=== PATIENT | female | born 1965 | race Caucasian/White ===

== ENCOUNTER → 2016-06-26 | Outpatient (CLI) | payer OTHER ==
--- NOTE | 2016-06-27 11:16 | MM ---
Reason for exam: screening (asymptomatic). Last mammogram was performed 1 year and 11 months ago. History: Patient is postmenopausal. Family history of breast cancer in maternal grandmother at age 70 and breast cancer in maternal aunt at age 65. Took estrogen for 6 months. Physical Findings: A clinical breast exam by your physician is recommended on an annual basis and results should be correlated with mammographic findings. MG Screening Mammo w CAD Bilateral CC and MLO view(s) were taken. Prior study comparison: July 21, 2014, right breast MG work up mamm w CAD RT. July 15, 2014, bilateral MG screening mammo w CAD. The breast tissue is heterogeneously dense. This may lower the sensitivity of mammography. There is no discrete abnormality. No significant changes when compared with prior studies. ASSESSMENT: Negative, BI-RAD 1 RECOMMENDATION: Routine screening mammogram of both breasts in 1 year.
== END | disposition home or self-care (01) ==
LOC: RADMAMWWP 10:33
PROVIDERS: ATTEND Obstetrics & Gynecology
DX: Z12.31 Encounter for screening mammogram for malignant neoplasm of breast (principal)

== ENCOUNTER → 2016-09-12 | Outpatient (CLI) | payer OTHER ==
--- NOTE | 2016-09-13 07:18 | US ---
EXAMINATION TYPE: US thyroid st tissue head/neck DATE OF EXAM: 09/12/2016 COMPARISON: NONE CLINICAL HISTORY: R59.1 Lymphadenopathy of head and neck. Patient and Dr. feel like patient had left sided swelling. A 1.5 x 0.7 cm lymph node is seen, which is oval and normal in morphology maintaining a fatty hilum.. No other cystic or solid sonographic masses are seen. No suspicious sonographic abnormality is prese nt. IMPRESSION: Single morphologically normal-appearing lymph node within the left neck measuring 7 mm i n short axis.
== END | disposition home or self-care (01) ==
LOC: RADUSWWP 15:35
PROVIDERS: ATTEND Family Medicine
DX: R59.1 Generalized enlarged lymph nodes (principal)
CPT/HCPCS: 76536

== ENCOUNTER → 2017-04-20 | Outpatient (CLI) | payer OTHER ==
--- NOTE | 2017-04-20 09:29 | XR ---
EXAMINATION TYPE: XR wrist complete RT DATE OF EXAM: 04/20/2017 COMPARISON: NONE HISTORY: Pain TECHNIQUE: Four views submitted. FINDINGS: The osseous structures are intact. Narrowing the first carpal metacarpal joint and there is no acute fracture or dislocation. IMPRESSION: 1. No definite acute fracture or dislocation if symptoms persist, follow-up study in 7 to 10 days wo uld be suggested
== END | disposition home or self-care (01) ==
LOC: RADXRYALE 09:06
PROVIDERS: ATTEND Family Medicine
DX: M25.531 Pain in right wrist (principal); M25.541 Pain in joints of right hand

== ENCOUNTER → 2017-09-10 | Outpatient (CLI) | payer OTHER ==
--- NOTE | 2017-09-10 10:13 | XR ---
EXAMINATION TYPE: XR knee complete RT DATE OF EXAM: 09/10/2017 CLINICAL HISTORY: Medial knee pain and posterior knee pain after injury yesterday TECHNIQUE: Three views of the right knee are obtained. COMPARISON: None. FINDINGS: Although there is no acute fracture/dislocation evident in right knee there is slight media l subluxation of the femur on the frontal view, however this could also relate to slight obliquity an d angulation of the femur. The tri-compartment joint spaces demonstrate mild medial compartment join t space narrowing and small marginal osteophyte from the medial femoral condyle as well as from the s uperior and inferior patellar poles. The overlying soft tissue appears unremarkable. IMPRESSION: 1. No evidence of acute fracture or dislocation of the right knee. 2. Slight medial subluxation of the distal femur that could relate to patient positioning. If there i s further concern MRI could be performed. 3. Mild medial compartment arthropathy.
== END | disposition home or self-care (01) ==
LOC: RADXRYALE 09:15
PROVIDERS: ATTEND Physician Assistant Medical
DX: S83.191A Other subluxation of right knee, initial encounter (principal); M12.861 Other specific arthropathies, not elsewhere classified, right knee

== ENCOUNTER 2019-03-06 08:32 | Day surgery (SDC) | payer OTHER ==
[2019-03-04 15:36] VITALS: BMI 31.4
[~2019-03-06 08:32] MED LIST: LACTATED RINGERS 1,000 ML IV SCH; LIDOCAINE 1% 20 ML VIAL (10MG/ML) FOR IV START INTRADERMA PRN
[2019-03-06 08:51] VITALS: TEMP 97.5
[2019-03-06] MEDS ORDERED: LIDOCAINE 1% INJ 10MG/ML (20 ML MDV) ONE (09:32)
[2019-03-06] MEDS ORDERED: PROPOFOL 10 MG/ML 20 ML VIAL IV ONE (09:32)
[2019-03-06 10:20] VITALS: RESP 16
--- NOTE | 2019-03-06 10:22 | P.PCN ---
Date of Procedure: 03/06/19 Description of Procedure: BRIEF HISTORY: Patient is a 54-year-old female presenting for outpatient colonoscopy for complaints of change in bowel habits. Patient was seen as an outpatient complaining of abdominal pain with episodes of urgency with bowel movements and findings of x-ray of the abdomen performed with her primary which showed large stool burden. At that time patient was recommended to have a colonoscopy for further evaluation. She was also started on a bowel regimen of Benefiber daily and dicyclomine as needed but has not initiated this treatment. She reports last colonoscopy in 2016 was significant for polypectomy. PROCEDURE PERFORMED: Colonoscopy with polypectomy. PREOPERATIVE DIAGNOSIS: Change in bowel habits, last colonoscopy 2015. ESTIMATED BLOOD LOSS: Minimal. IV sedation per Anesthesia. PROCEDURE: After informed consent was obtained, the patient, was brought into the endoscopy unit. IV sedation was administered by Anesthesia under continuous monitoring. Digital rectal examination was normal. Initially the Olympus CF-190 flexible video colonoscope was then inserted in the rectum, gradually advanced into the cecum without any difficulty. Careful examination was performed as the scope was gradually being withdrawn. Ileocecal valve and the appendiceal orifice were visualized and appeared normal. Prep was excellent. Mucosa of the cecum, ascending colon, transverse colon, descending colon, sigmoid colon, and rectum appeared normal. A few scattered diverticula were noted in the sigmoid colon. Diminutive 2 mm polyps removed from the rectum and transverse colon with cold forcep polypectomy. Retroflexion was performed in the rectum and no lesions were seen. The patient tolerated the procedure well. IMPRESSION: Mild sigmoid diverticulosis. 2 diminutive polyps removed with cold forcep from the rectum and transverse colon. RECOMMENDATIONS: Findings of this examination were discussed with the patient And her . Okay to resume diet. Okay to resume medications. Await pathology from polypectomies. Follow-up in clinic as previously scheduled. Would recommend repeat colonoscopy in 5 years for history of colon polyps.
[2019-03-06 10:31] VITALS: BP 131/77; PULSE 64
== END 2019-03-06 11:02 | disposition home or self-care (01) ==
LOC: ORWHC2ENDO 08:32
PROVIDERS: ATTEND Internal Medicine
DX: K63.5 Polyp of colon (principal); K62.1 Rectal polyp; K57.30 Diverticulosis of large intestine without perforation or abscess without bleeding; Z86.010 Personal history of colon polyps; Z88.0 Allergy status to penicillin; Z90.710 Acquired absence of both cervix and uterus; Z90.49 Acquired absence of other specified parts of digestive tract; Z72.0 Tobacco use; Z79.3 Long term (current) use of hormonal contraceptives; Z79.899 Other long term (current) drug therapy; Z98.890 Other specified postprocedural states
CPT/HCPCS: 88305; 45380; J2001; J2704

== ENCOUNTER → 2020-02-03 | Outpatient (CLI) | payer OTHER ==
--- NOTE | 2020-02-03 11:31 | XR ---
EXAMINATION TYPE: XR abdomen 2V DATE OF EXAM: 02/03/2020 COMPARISON: NONE HISTORY: Pain TECHNIQUE: Single supine KUB image of the abdomen is obtained FINDINGS: Small bowel demonstrates no evidence for dilatation or air fluid levels. Gas and fecal material is seen in non-distended colon. No convincing evidence for pneumoperitoneum. No unusual calcifications. The lung bases are clear. The osseous structures are intact. IMPRESSION: 1. Overall nonobstructive bowel gas pattern.
== END | disposition home or self-care (01) ==
LOC: RADXRYALE 11:10
PROVIDERS: ATTEND Physician Assistant Medical
DX: K59.00 Constipation, unspecified (principal); R10.30 Lower abdominal pain, unspecified
CPT/HCPCS: 74019

== ENCOUNTER → 2021-01-05 | Outpatient (CLI) | payer OTHER ==
[2021-01-05 10:47] LABS: ALT 18 U/L (4-34); AST 23 U/L (14-36); African American GFR (CKD) >90 (>60 ml/min/1.73 sqM); Albumin 4.1 g/dL (3.5-5.0); Alkaline Phosphatase 72 U/L (38-126); Anion Gap 8 mmol/L; Blood Urea Nitrogen 12 mg/dL (7-17); Calcium 9.8 mg/dL (8.4-10.2); Carbon Dioxide 26 mmol/L (22-30); Chloride 104 mmol/L (98-107); Glucose 102 mg/dL (74-99); Non-African American GFR(CKD) 85 (>60 ml/min/1.73 sqM); Potassium 4.6 mmol/L (3.5-5.1); Sodium 138 mmol/L (137-145); Total Bilirubin 0.3 mg/dL (0.2-1.3); Total Protein 7.2 g/dL (6.3-8.2)
[2021-01-05 10:50] LABS: INR 0.9 (<1.2); Partial Thromboplastin Time 24.3 sec (22.0-30.0); Prothrombin Time 10.1 sec (9.0-12.0)
[2021-01-05 11:00] LABS: Appearance,Urine Clear (Clear); Bilirubin,Urine Negative (Negative); Blood,Urine Negative (Negative); Color,Urine Light Yellow; Glucose,Urine (UA) Negative (Negative); Ketones,Urine Negative (Negative); Leukocyte Esterase,Urine Negative (Negative); Nitrite,Urine Negative (Negative); Protein,Urine Negative (Negative); Specific Gravity,Urine 1.004 (1.001-1.035); Urobilinogen,Urine <2.0 mg/dL (<2.0)
[2021-01-05 11:10] LABS: HGB 15.9 gm/dL (11.4-16.0); MCH 31.3 pg (25.0-35.0); MCHC 33.1 g/dL (31.0-37.0); MCV 94.5 fL (80.0-100.0); Mean Platelet Volume 7.5; Platelet Count 293 k/uL (150-450); RBC 5.08 m/uL (3.80-5.40); RDW 13.3 % (11.5-15.5); WBC 8.4 k/uL (3.8-10.6)
== END | disposition home or self-care (01) ==
LOC: LABPAT 09:20
PROVIDERS: ATTEND Orthopaedic Surgery Sports Medicine
DX: Z01.812 Encounter for preprocedural laboratory examination (principal)
CPT/HCPCS: 80053; 81003; 85027; 85610; 85730; 87070

== ENCOUNTER 2021-01-27 08:15 | Day surgery (SDC) | payer OTHER ==
[2021-01-24 15:40] VITALS: BMI 31.9
[~2021-01-27 08:15] MED LIST changes: +ACETAMINOPHEN TAB 500 MG TAB PO PRN; +DEXAMETHASONE SOD PHOSPHATE 4 MG/ML 1 ML VIAL IV ONE; +GABAPENTIN 300 MG CAP PO PRN; -LACTATED RINGERS 1,000 ML IV SCH; +LIDOCAINE 1% (10MG/ML) FOR IV START INTRADERMA PRN; -LIDOCAINE 1% 20 ML VIAL (10MG/ML) FOR IV START INTRADERMA PRN; +MELOXICAM 7.5 MG TAB PO PRN; +MIDAZOLAM 2 MG/2 ML VIAL IV PRN; +ONDANSETRON 4 MG/2 ML VIAL IVP ONE; +ONDANSETRON 4 MG/2 ML VIAL IVP PRN; +TRANEXAMIC ACID 1,000 MG in SODIUM CHLORIDE 0.9% 100 ML IVPB PRN
[2021-01-27] MEDS ORDERED: SCOPOLAMINE 1.5MG/72HR PATCH TRANSDERM ONE (09:15)
[2021-01-27] MEDS: LACTATED RINGERS 1,000 ML IV SCH ×2 (09:15→16:52)
[2021-01-27 09:30] LABS: Glucose,Whole Blood 113 mg/dL (75-99)
[2021-01-27] MEDS ORDERED: bisacodyL 10 MG SUPP RECTAL PRN (09:50)
[2021-01-27] MEDS ORDERED: ONDANSETRON 4 MG/2 ML VIAL IVP PRN (09:50)
[2021-01-27] MEDS ORDERED: MAGNESIUM HYDROXIDE 2,400 MG/10 ML CUP PO PRN (09:50)
[2021-01-27] MEDS ORDERED: HYDROmorphone 1 MG/ML 1 ML SYRINGE IVP PRN (09:50)
[2021-01-27] MEDS ORDERED: diazePAM 5 MG TAB PO PRN (09:50)
[2021-01-27] MEDS ORDERED: ACETAMINOPHEN TAB 325 MG TAB PO PRN (09:50)
[2021-01-27] MEDS ORDERED: traMADol 50 MG TAB PO PRN (09:50)
[2021-01-27] MEDS ORDERED: HYDROmorphone 0.5 MG/0.5 ML SYRINGE IVP PRN (09:50)
[2021-01-27] MEDS ORDERED: HYDROcodone/APAP 5-325MG 1 EACH TAB PO PRN (09:50)
[2021-01-27] MEDS ORDERED: NA PHOS,M-B/NA PHOS,DI-BA 133 ML ENEMA RECTAL PRN (09:50)
[2021-01-27] MEDS ORDERED: hydrOXYzine pamoate 25 MG CAP PO PRN (09:50)
[2021-01-27] MEDS ORDERED: TEMAZEPAM 15 MG CAP PO PRN (09:50)
[2021-01-27] MEDS ORDERED: HYDROmorphone 0.2 MG/1 ML SYRINGE IVP PRN (09:50)
[2021-01-27] MEDS ORDERED: NALOXONE 0.4 MG/ML 1 ML VIAL IV PRN (09:50)
[2021-01-27] MEDS ORDERED: ROPIVACAINE 5 MG/ML 30 ML VIAL ONE (09:51)
[2021-01-27] MEDS ORDERED: TRANEXAMIC ACID 1,000 MG/10 ML VIAL ONE (09:51)
[2021-01-27] MEDS ORDERED: SODIUM CHLORIDE 0.9% 100 ML BAG ONE (09:51)
[2021-01-27] MEDS ORDERED: PHENYLEPHRINE-0.9% NACL SYG 1,000 MCG/10 ML SYRINGE ONE (09:51)
[2021-01-27] MEDS ORDERED: MIDAZOLAM 2 MG/2 ML VIAL ONE (09:51)
[2021-01-27] MEDS ORDERED: .fentaNYL (PF) 50 MCG/ML 2 ML AMP ONE (09:51)
[2021-01-27] MEDS ORDERED: PROPOFOL 10 MG/ML 20 ML VIAL IV ONE (09:51)
[2021-01-27] MEDS ORDERED: ePHEDrine 50 MG/ML 1 ML AMP ONE (09:51)
[2021-01-27] MEDS ORDERED: KETAMINE 10 MG/ML 20 ML VIAL ONE (09:51)
--- NOTE | 2021-01-27 09:57 | P.ANPRN ---
Procedure Note - Anesthesia - Nerve Block Performed Right Adductor Canal Infusion Time Out Performed: Yes (922) Date of Procedure: 01/27/21 Procedure Start Time: 09:23 Procedure Stop Time: 09:28 Location of Patient: PreOp Indication: Acute Post-Operative Pain, Requested by Surgeon Specifically requested for management of pain by DrEllyn: Ronal Clark Sedation Type: Sedate with meaningful contact maintained Preparation: Sterile Prep, Sterile Dressing Position: Supine Catheter Depth at Skin (cm): 8 Catheter: Indwelling Needle Types: Pajunk Needle Gauge: 21 Ultrasound used to visualize needle placement: Yes Ultrasound used to observe medication spread: Yes Injectate: 0.5% Ropivacaine (see comment for volume) (20cc) Blood Aspirated: No Pain Paresthesia on Injection Noted: No Resistance on Injection: Normal Image Stored and Saved: Yes Events: Uneventful and Well Tolerated Right iPack Single Time Out Performed: Yes (922) Date of Procedure: 01/27/21 Procedure Start Time: 09:29 Procedure Stop Time: 09:34 Location of Patient: PreOp Indication: Acute Post-Operative Pain, Requested by Surgeon Specifically requested for management of pain by DrEllyn: Ronal Clark Sedation Type: Sedate with meaningful contact maintained Preparation: Sterile Prep Position: Supine Catheter: None Needle Types: Pajunk Needle Gauge: 21 Ultrasound used to visualize needle placement: Yes Ultrasound used to observe medication spread: Yes Injectate: 0.5% Ropivacaine (see comment for volume) (20cc) Blood Aspirated: No Pain Paresthesia on Injection Noted: No Resistance on Injection: Normal Image Stored and Saved: Yes Events: Uneventful and Well Tolerated
[2021-01-27] MEDS ORDERED: ceFAZolin 3,000 MG in SODIUM CHLORIDE 0.9% IRRIGATIO 3,000 ML IRRIGATION ONE (10:27)
[2021-01-27] MEDS ORDERED: LACTATED RINGERS 1,000 ML IV ONE (11:32)
[2021-01-27] MEDS ORDERED: ROPIVACAINE 0.2%-NS ON-Q PUMP 1,090 MG, EMPTY PAIN BALL 1 EACH MISCELLANE PRN (11:54)
--- NOTE | 2021-01-27 12:42 | XR ---
EXAMINATION TYPE: XR knee limited RT DATE OF EXAM: 01/27/2021 CLINICAL HISTORY: Right knee pain and arthritis status post total knee replacement. TECHNIQUE: Portable AP and crosstable lateral views of the right knee are obtained immediately posto peratively. COMPARISON: Right knee x-ray September 10, 2017 FINDINGS: Metallic hardware from total right knee arthroplasty is seen and appears satisfactory in a lignment and position. There is evidence of recent surgery with diffuse subcutaneous gas and soft ti ssue swelling noted. IMPRESSION: METALLIC HARDWARE FROM TOTAL RIGHT KNEE ARTHROPLASTY IS SATISFACTORY IN ALIGNMENT.
[2021-01-27] MEDS: HYDROmorphone 0.5 MG/0.5 ML SYRINGE IVP PRN ×2 (13:52→16:00)
[2021-01-27] MEDS ORDERED: diphenhydrAMINE 50 MG/ML 1 ML VIAL IVP ONE (13:52)
--- NOTE | 2021-01-27 14:33 | OP ---
OPERATIVE REPORT DATE OF PROCEDURE: 01/27/2021. SURGEON: Ronal Clark M.D. ESCALATOR MECHANIC: Walt Leo PA-C PREOPERATIVE DIAGNOSIS: Right knee osteoarthrosis. POSTOPERATIVE DIAGNOSIS: Right knee osteoarthrosis. OPERATION: Right total knee arthroplasty. ANESTHESIA: Spinal with sedation. ESTIMATED BLOOD LOSS: 100 mL. TOURNIQUET TIME: 50 minutes at 250 mmHg. COMPLICATIONS: None apparent. DRAINS: None. DISPOSITION: Post-Anesthesia Care Unit INDICATIONS: Celeste is a 55-year-old female with longstanding history of right knee pain. History and physical examination are consistent with advanced right knee osteoarthrosis. She has been through significant nonoperative management up to this point. Further treatment options were discussed and she has decided to go forward with right total knee arthroplasty. The risks of the procedure were discussed with her in detail. These risks included but were not limited to risk of infection, nerve damage, bleeding, pain, and a small risk of deep vein thrombosis which could lead to fatal pulmonary embolism. There is also a risk of loosening of the implant, which could require revision operation. The patient understands the risks. All of her questions were answered to her satisfaction. Appropriate informed consent was obtained. DESCRIPTION OF THE PROCEDURE: The patient was identified in the preoperative holding area. Surgical site was marked by both the patient and myself. She was given 2 grams of Ancef IV for prophylactic purposes. She was then transported to the operative suite. She was placed supine on the operating room table. A spinal anesthetic was then administered and dosed per the anesthesia department without apparent complication. Examination under anesthesia was then performed. The patient was 2-3 degrees shy of full extension. She had 100 degrees of flexion. The medial collateral ligament, lateral collateral ligament and posterior cruciate ligaments were stable. Tourniquet was then placed high on the right upper thigh, well padded in preparation for surgery. The patient's right lower extremity was then prepped and draped in the usual sterile fashion. A standard surgical pause was undertaken to ensure that we were operating on the correct site and that appropriate preoperative antibiotics had been given. All staff in the room were in agreement and we proceeded. The outlines of the patella were marked with a surgical pen. A planned 12 cm vertical incision centered over the patella was marked with a surgical pen. The leg was then exsanguinated with an Esmarch dressing. The knee was then flexed and the tourniquet was inflated to 250 mmHg. The total tourniquet time for the procedure was 50 minutes Incision was then made with a 10 blade scalpel. Dissection was carried down sharply to the overlying fascia. Great care was taken to minimize the skin flaps. The knee was then exposed using a standard medial parapatellar approach. A small cuff of quadriceps tendon was then left for suturing. She was in a bit of varus preoperatively. A standard medial release was then made. Superficial medial collateral ligament was dissected off of the bone and around to the posterior aspect of the proximal tibia. The medial meniscus was then excised as well. The lateral meniscus was also released anteriorly. The leg was then externally rotated. The patella was everted. The knee was flexed. Retractors were then placed to protect the collateral ligaments. I then proceeded to remove the infrapatellar fat pad. This was excised sharply tangentially with the fibers of the patellar tendon. I then proceeded to remove the peripheral osteophytes. This was done with a rongeur. I then proceeded with the distal femoral resection. She did have near-full extension. A planned 9 mm resection was then done. The femoral canal was then entered in the midline of the femur approximately 10 mm anterior to the origin of the posterior cruciate ligament. The harry was then advanced down the center of the femur and placed intramedullary. Based on the preoperative radiographs, the angle between the anatomic and mechanical axis of the femur was approximately 4-5 degrees. The valgus angle of the distal femoral cutting guide was then set at 4 degrees for the right knee. The distal femoral cutting guide was then advanced over the intramedullary harry. This was seated firmly against the femur. Then, as mentioned, I planned to take 9 mm off the distal femur. The cutting block was then secured onto the femur with pins. The jig was then removed. The distal femoral cut was made through the slot of the block. The pins were then removed and the distal femoral cutting block was removed. The accuracy of the distal femoral cuts was checked with 2 flat bars. I then proceeded with femoral sizing. The posterior referencing sizing guide was held firmly against the resected distal surface of the femur. The posterior condyles were resting on the posterior plane of the guide. The sizing stylus was then placed onto the anterior femur. The size was measured as a size 6. I then assessed for femoral rotation. The plan was for 3 degrees of external rotation. Three degrees of external rotation was placed onto the jig. These holes were then marked. I then confirmed the rotation by 3 separate methods. This was done using the epicondylar axis as well as Whitesides line and posterior referencing. It was deemed that the external rotation was proper. I then went forward with placing the femoral cutting block. This was placed over the previously placed pin holes. The Dereck wing was then placed onto the anterior slots to ensure that we would not notch the anterior femur with the anterior femoral cut. I then proceeded with the anterior femoral cut. This was flush with the anterior cortex of the femur. The posterior cuts were then made followed by the anterior chamfer cut and then the posterior chamfer cut. The cutting block was then removed. Throughout the resection, the collateral ligaments were protected with retractors. I then placed a trial size 6 femur. It fit very nicely medial to lateral and it fit flush with the distal end of the femur. The drill holes were then made. I then proceeded with the tibial cut. I planned for a cruciate-retaining knee. The guide was placed and set for varus, valgus and for slope. The height was set for an approximate 2 mm resection from the medial tibial plateau, which was the lower side. I was happy with the alignment and the amount of resection. The cutting block was then pinned to the proximal tibia. The alignment harry was removed and the proximal tibia was resected with a reciprocating saw. Again, this was done with retractors protecting the collateral ligaments as well as the posterior cruciate ligament. I then proceeded to evaluate the flexion and extension gaps. A 10 mm block was then placed. The flexion and extension gaps were equal. I then proceeded with resection of the posterior osteophytes. She had very minimal posterior osteophytes. This was done using a curved osteotome. This resected the posterior osteophytes, and posterior capsule stripping was done off the posterior aspect of the femur at this time. The osteophytes were then removed. I then proceeded with resection of the patella. The thickness of the patella was measured using the caliper. The thickness was 22 mm. The thickness of the anticipated patellar dome was taken into account. The resection was then performed and confirmed to be equal in 4 quadrants using a caliper. Approximately 14 mm of bone remained after resection. A 29 x 8 standard patellar trial was then placed. The holes were drilled and the trial was then placed. I then proceeded with sizing the tibial plate. A size E tibial plate fit very nicely. I then placed the trial femur, the tibial tray and the patellar button. A 10 mm trial tibial insert was also placed. The components fit very nicely. She had full extension and flexion. The extension and flexion gaps were equal and stable to both varus and valgus stress. The patella tracked appropriately. Tibial tray rotation was then marked with a Bovie. This was externally rotated properly. I then proceeded with tibial preparation. First we drilled the femoral holes and removed the femoral component. The tibial tray was then set for proper external rotation as well as mediolateral placement onto the tibia. It was then pinned into place. I then proceeded with punching the keel. I then decided to proceed with cementing of all of our components. The knee was thoroughly irrigated with sterile saline solution via pulse lavage. The lateral geniculate artery was identified and cauterized. All blood was removed from the bone of the tibia, femur and patella with pulse lavage. I then proceeded with cementing. Two packs of antibiotic bone cement were prepared on the back table by the surgical nurse practitioner. I then proceeded with cementing of the tibia first. The cement was impacted into the keel as well as deeply seated into the bone. A second coat of cement was then placed. The tibia was then impacted into place. Excess cement was removed with Diaz's and Joker's. I then proceeded with cementing of the femoral component. The femoral component was also cemented using standard technique. Excess cement was removed. A 10 mm trial insert was then placed into the knee. It was brought into full extension with a constant axial load placed until the cement had hardened. The patellar component was then cemented. This was held firmly with a compressive device until the cement had dried. When the cement had dried, the knee was taken out of extension. All excess cement was removed from around the prosthesis. I then trialed the knee with a 10 mm insert. Flexion and extension gaps were appropriate. I then trialed with a 12 mm insert. Flexion and extension gaps felt better. The knee was stable with the 12 mm insert. It came into full extension. I decided to go forward with a 12 mm medial-congruent, cross- linked, cruciate-retaining tibial insert. Polyethylene was then placed onto the tibial tray and locked into place. The knee was then reduced. The knee was again further irrigated with sterile saline solution with antibiotic added. The tourniquet was then deflated. Total tourniquet time for the procedure was 50 minutes at 250 mmHg. Final components were Suze Persona size 6 cruciate-retaining femoral component, a size E tibial tray, a 12 mm medial-congruent, cruciate-retaining polyethylene insert and a 29 x 8 mm patella. I then proceeded with closure. Again the knee was thoroughly irrigated. The quadriceps tendon and the medial retinaculum were reapproximated with #2 Ethibond suture. The extensor mechanism was then closed with a running #2 Quill suture. Subcutaneous tissues were closed with 2-0 Vicryl interrupted suture. The skin was closed with a running 3-0 Quill suture. Dermabond was applied to the incision. Sterile compressive dressings were applied. All sponge and needle counts were deemed correct prior to closure. The patient tolerated the procedure without apparent complication. She was transferred to the recovery room in stable condition. MMODL / IJN: [id number] /
[2021-01-27] MEDS: ASPIRIN 81 MG PO SCH (20:27)
[2021-01-27] MEDS: HYDROcodone/APAP 10-325MG 1 EACH TAB PO PRN (20:28)
[2021-01-27] MEDS ORDERED: SENNOSIDES-DOCUSATE SODIUM 1 EACH TAB PO SCH (21:00)
[2021-01-28 01:18] VITALS: PULSE 55; RESP 16
[2021-01-28] MEDS: LACTATED RINGERS 1,000 ML IV SCH ×3 (02:38→07:42)
[2021-01-28] MEDS: ASPIRIN 81 MG PO SCH (07:39)
[2021-01-28] MEDS: HYDROcodone/APAP 10-325MG 1 EACH TAB PO PRN (07:39)
--- NOTE | 2021-01-28 08:18 | P.PN ---
Progress Note - Text 01/28/21 636am 75-year-old female status post total knee replacement by Dr. Clark patient has an On-Q pump for postop pain control with the solution running at 8 mL an hour with a VAS of 9. Dressing clean dry and intact. patient needs oral meds for breakthrough pain. Plan to continue On-Q pump infusion
[2021-01-28] MEDS ORDERED: IPRATROPIUM-ALBUTEROL 3 ML NEB INHALATION PRN (08:41)
--- NOTE | 2021-01-28 09:06 | P.CONS ---
History of Present Illness - History of Present Illness This is a pleasant 55 years old female with past medical history of COPD, Ost eoarthritis, diverticulitis, Current every day smoker chronic back pain status post steroid injection Was admitted for right total knee replacement and arthroplasty. She is postop day #1 Patient is doing well and she was ready to walk with the physical therapist. She denies chest pain or dyspnea. No coughing. No abdominal pain or vomiting or diarrhea. No urinary complaints. Patient states she smokes about 1-1.5 pack per day, no alcohol or illicit drugs. Patient was counseled to quit and she agrees. She declined nicotine patch Vitals stable, heart rate 56-58. No current labs. Coronavirus nondetected Labs reviewed from the system dated 01/05/2021: CBC showing unremarkable numbers, INR 0.9 BMP is unremarkable and liver enzymes not elevated. Urinalysis is clean Review of Systems CONSTITUTIONAL: No fever, no malaise, no fatigue. HEENT: No recent visual problems or hearing problems. Denied any sore throat. CARDIOVASCULAR: No orthopnea, PND, no palpitations, no syncope. PULMONARY: No shortness of breath, no cough, no hemoptysis. GASTROINTESTINAL: No diarrhea, no nausea, no vomiting, no abdominal pain. Normoactive bowel sounds. NEUROLOGICAL: No headaches, no weakness, no numbness. HEMATOLOGICAL: Denies any bleeding or petechiae. GENITOURINARY: Denies any burning micturition, frequency, or urgency. MUSCULOSKELETAL/RHEUMATOLOGICAL: Denies any joint pain, swelling, or any muscle pain. ENDOCRINE: Denies any polyuria or polydipsia. Past Medical History Past Medical History: COPD, Osteoarthritis (OA) Additional Past Medical History / Comment(s): seasonal allergies, hx of colon polyps, hypoglycemia, diverticulitis History of Any Multi-Drug Resistant Organisms: None Reported Past Surgical History: Bladder Surgery, Cholecystectomy, Hernia Repair, Hysterectomy, Orthopedic Surgery Additional Past Surgical History / Comment(s): lyndon knee arthroscopies, colonoscopies, bladder suspension,. STEROID INJECTIONS IN BACK, RIGHT KNEE REPLACEMENT Past Anesthesia/Blood Transfusion Reactions: Motion Sickness, Postoperative Nausea & Vomiting (PONV) Additional Past Anesthesia/Blood Transfusion Reaction / Comm: PATIENT STATES SHE HAS NEVER HAD A BLOOD TRANSFUSION Past Psychological History: No Psychological Hx Reported Smoking Status: Current every day smoker Past Alcohol Use History: Rare Additional Past Alcohol Use History / Comment(s): SMOKES @least 1-1.5 PPD FOR PAST 30 YRS Past Drug Use History: None Reported - Past Family History Mother Family Medical History: Congestive Heart Failure (CHF), Coronary Artery Disease (CAD) Additional Family Medical History / Comment(s): BACK SURGERY Father Family Medical History: AICD/Pacemaker, CVA/TIA, Diabetes Mellitus Medications and Allergies Home Medications Medication Instructions Recorded Confirmed Type Multivitamins, Thera [Multivitamin] 1 tab PO DAILY 09/10/14 01/24/21 History Cyanocobalamin (Vitamin B-12) 1,000 mcg PO DAILY 03/04/19 01/24/21 History [Vitamin B-12] Vitamin C/Biotin [Hair, Skin and 1 tab PO DAILY 03/04/19 01/24/21 History Nails] Acetaminophen [Tylenol] 325 - 650 mg PO Q4-6H PRN 01/24/21 01/24/21 History Albuterol Inhaler [Ventolin Hfa 2 puff INHALATION QID PRN 01/24/21 01/24/21 History Inhaler] Ascorbic Acid [Vitamin C] 500 mg PO DAILY 01/24/21 01/24/21 History Cholecalciferol [Vitamin D3 (25 25 mcg PO DAILY 01/24/21 01/24/21 History Mcg = 1000 Iu)] Zinc 50 mg PO DAILY 01/24/21 01/24/21 History Aspirin [Adult Low Dose Aspirin EC] 81 mg PO BID #60 tab 01/27/21 Rx Docusate [Colace] 100 mg PO BID #60 capsule 01/27/21 Rx HYDROcodone/APAP 7.5-325MG [[place] 1 - 2 each PO Q6HR PRN #42 tab 01/27/21 Rx 7.5-325] Allergies Allergy/AdvReac Type Severity Reaction Status Date / Time Penicillins Allergy Rash/Hives Verified 01/27/21 17:04 Physical Exam Vitals: Vital Signs Temp Pulse Pulse Resp BP Pulse Ox 01/28/21 08:25 93 L 01/28/21 00:42 97.6 F 55 L 16 104/65 93 L 01/27/21 19:05 97.9 F 58 L 15 103/68 93 L 01/27/21 16:01 56 L 16 116/65 97 01/27/21 15:04 56 L 16 127/61 100 01/27/21 14:02 55 L 16 123/66 97 01/27/21 13:30 56 L 16 126/63 99 01/27/21 13:15 56 L 16 119/64 97 01/27/21 13:01 57 L 16 115/63 99 01/27/21 12:46 64 16 115/61 99 01/27/21 12:31 62 16 124/62 98 01/27/21 12:18 54 L 16 116/67 100 01/27/21 12:00 54 L 16 110/61 100 01/27/21 11:50 97.0 F L 62 16 109/59 99 01/27/21 09:40 55 L 16 119/75 98 01/27/21 09:04 97.7 F 62 16 137/72 98 Intake and Output 01/27/21 01/28/21 01/28/21 22:59 06:59 14:59 Intake Total 200 Balance 200 Intake: IV 200 Other: # Voids 1 Weight 88.5 kg GENERAL: The patient is alert and oriented x3, not in any acute distress. Well developed, well nourished. HEENT: Pupils are round and equally reacting to light. EOMI. No scleral icterus. No conjunctival pallor. Normocephalic, atraumatic. No pharyngeal erythema. No thyromegaly. CARDIOVASCULAR: S1 and S2 present. No murmurs, rubs, or gallops. PULMONARY: Chest is clear to auscultation, no wheezing or crackles. ABDOMEN: Soft, nontender, nondistended, normoactive bowel sounds. No palpable organomegaly. MUSCULOSKELETAL: No joint swelling or deformity. -EXTREMITIES: No cyanosis, clubbing, or pedal edema. Status post right knee surgery with wound is closed and in a dressing, rest of exam is deferred to the surgery primary team NEUROLOGICAL: Gross neurological examination did not reveal any focal deficits. SKIN: No rashes. No petechiae Results Labs: Abnormal Lab Results - Last 24 Hours (Table) 01/27/21 Range/Units 09:18 POC Glucose (mg/dL) 113 H (75-99) mg/dL Assessment and Plan Assessment: Severe osteoarthritis of the right knee status post right total knee arthroplasty Nicotine dependence COPD, not an active issue History of diverticulitis Plan: This is a pleasant 55 years old female who presents for right total knee arthroplasty Continue with postop care Patient was counseled to quit and she agrees. She declined nicotine patch Patient looks medically stable Labs and medication were reviewed.. Continue same treatment. Continue with symptomatic treatment. Resume home medication. Monitor lytes and vitals. DVT and GI prophylaxis. Further recommendationsas per clinical course of the patient DVT prophylaxis and pain management is deferred to the primary surgery team PT/OT: Pending Thank you for consulting us , we will follow up with you
[2021-01-28 09:34] LABS: Basophils # (A) 0.02 X 10*3/uL (0.00-0.10); Basophils % (A) 0.2 %; Eosinophils # (A) 0.04 X 10*3/uL (0.04-0.35); Eosinophils % (A) 0.3 %; HCT 41.8 % (37.2-46.3); HGB 13.1 g/dL (12.0-15.0); Lymphocytes # (A) 3.22 X 10*3/uL (0.90-5.00); Lymphocytes % (A) 27.9 %; MCHC 31.3 g/dL (32.0-37.0); MCV 95.7 fL (80.0-97.0); Mean Platelet Volume 10.5 fL (9.5-12.2); Monocytes # (A) 0.93 X 10*3/uL (0.20-1.00); Neutrophils # (A) 7.32 X 10*3/uL (1.80-7.70); Neutrophils % (A) 63.3 %; Platelet Count 271 X 10*3/uL (140-440); RBC 4.37 X 10*6/uL (4.10-5.20); WBC 11.56 X 10*3/uL (4.50-10.00)
[2021-01-28] MEDS ORDERED: HYDROcodone/APAP 7.5-325MG 1 EACH TAB PO PRN ×2 (09:50)
--- NOTE | 2021-01-28 10:06 | P.DS ---
Providers Expected date of discharge: 01/28/21 Attending physician: Ronal Clark Consults: 01/27/21 09:50 Consult Physician Routine Consulting Provider: Juan Johnson Consult Reason/Comments: post op medical management Do you want consulting provider notified?: Yes Primary care physician: Wan Ramos - Discharge Diagnosis(es) (1) Osteoarthritis of right knee Patient was admitted to the OR on 01/27/21 to undergo a right total knee arthroplasty. She had failed conservative measures as an outpatient and desired to proceed with elective surgery after given informed consent. She underwent the above procedure which she tolerated well without complication. Postoperative hospital course has remained without complication. On day of discharge she is afebrile, vital signs stable, labs within acceptable ranges, tolerating by mouth meds and diet, voiding without difficulty, positive flatus, denies abdominal pain or calf pain, pain is controlled on oral pain medication and has no new complaints. Wound is benign, neurovascular status is intact, calf is soft and nontender, abdomen soft and nontender. Review of systems is negative for numbness, tingling, fever, chills, chest pain, shortness of breath, nausea, vomiting, dizziness, headaches, slurred speech or other. Current Visit: Yes Status: Acute Priority: Medium Procedures: Right TKA Patient Condition at Discharge: Good Plan - Discharge Summary Discharge Rx Participant: Yes New Discharge Prescriptions: New Aspirin [Adult Low Dose Aspirin EC] 81 mg PO BID #60 tab Docusate [Colace] 100 mg PO BID #60 capsule HYDROcodone/APAP 7.5-325MG [[place] 7.5-325] 1 - 2 each PO Q6HR PRN #42 tab PRN Reason: Pain No Action Multivitamins, Thera [Multivitamin] 1 tab PO DAILY Vitamin C/Biotin [Hair, Skin and Nails] 1 tab PO DAILY Cyanocobalamin (Vitamin B-12) [Vitamin B-12] 1,000 mcg PO DAILY Acetaminophen [Tylenol] 325 - 650 mg PO Q4-6H PRN PRN Reason: Pain Albuterol Inhaler [Ventolin Hfa Inhaler] 2 puff INHALATION QID PRN PRN Reason: Shortness Of Breath Cholecalciferol [Vitamin D3 (25 Mcg = 1000 Iu)] 25 mcg PO DAILY Ascorbic Acid [Vitamin C] 500 mg PO DAILY Zinc 50 mg PO DAILY Discharge Medication List Multivitamins, Thera [Multivitamin] 1 tab PO DAILY 09/10/14 [History] Cyanocobalamin (Vitamin B-12) [Vitamin B-12] 1,000 mcg PO DAILY 03/04/19 [History] Vitamin C/Biotin [Hair, Skin and Nails] 1 tab PO DAILY 03/04/19 [History] Acetaminophen [Tylenol] 325 - 650 mg PO Q4-6H PRN 01/24/21 [History] Albuterol Inhaler [Ventolin Hfa Inhaler] 2 puff INHALATION QID PRN 01/24/21 [History] Ascorbic Acid [Vitamin C] 500 mg PO DAILY 01/24/21 [History] Cholecalciferol [Vitamin D3 (25 Mcg = 1000 Iu)] 25 mcg PO DAILY 01/24/21 [History] Zinc 50 mg PO DAILY 01/24/21 [History] Aspirin [Adult Low Dose Aspirin EC] 81 mg PO BID #60 tab 01/27/21 [Rx] Docusate [Colace] 100 mg PO BID #60 capsule 01/27/21 [Rx] HYDROcodone/APAP 7.5-325MG [[place] 7.5-325] 1 - 2 each PO Q6HR PRN #42 tab 01/27/21 [Rx] Follow up Appointment(s)/Referral(s): Ronal Clark MD [STAFF PHYSICIAN] - 10 Days [facility] Visiting Nurse, [NON-STAFF] - As Needed ([facility] will call you to schedule your home physical therapy visits. ) Activity/Diet/Wound Care/Special Instructions: Weight bear as tolerated May shower after 3 days if no bleeding Keep wound clean and dry Take meds as directed F/U with Dr. Clark in office Discharge Disposition: HOME WITH HOME HEALTH SERVICES
[2021-01-28 10:11] VITALS: BP 104/70; TEMP 97.8
[2021-01-28] MEDS ORDERED: MULTIVITAMINS, THERA 1 EACH TAB PO SCH (12:00)
== END 2021-01-28 14:55 | disposition home health service (06) ==
LOC: OR 08:15 → 4SSUR 11:50 → OR 01-28 14:55
PROVIDERS: ATTEND Orthopaedic Surgery Sports Medicine
DX: M17.11 Unilateral primary osteoarthritis, right knee (principal); E78.5 Hyperlipidemia, unspecified; F17.210 Nicotine dependence, cigarettes, uncomplicated; J44.9 Chronic obstructive pulmonary disease, unspecified; Z79.899 Other long term (current) drug therapy; Z88.0 Allergy status to penicillin
CPT/HCPCS: 94760; 97161; 64999; 64448; 76942; 85025; 88300; 87635; 73560; 27447; C1776; C1713; J2250; J1200; J1100; J0690 ×3; J2405; J3010; J2795 ×2; J2370; J2704; J1170

== ENCOUNTER → 2022-08-23 | Outpatient (CLI) | payer OTHER ==
--- NOTE | 2022-08-24 08:50 | MM ---
Reason for Exam: Screening (asymptomatic). Last mammogram was performed 6 year(s) and 2 month(s) ago. Patient History: Menarche at age 12. First Full-Term at age 17. Hysterectomy at age 39. Postmenopausal. Patient has history of breast feeding. Estrogen for 6 months. Maternal grandmother had breast cancer, age 70. Maternal aunt had breast cancer, age 65. Risk Values: Anneliese 5 year model risk: 0.9%. NCI Lifetime model risk: 5.0%. Prior Study Comparison: 12/16/2009 Bilateral Screening Mammogram, [facility]. 09/11/2011 Bilateral Screening Mammogram, [facility]. 07/15/2014 Bilateral Screening Mammogram, [facility]. 07/21/2014 Right Diagnostic Mammogram, [facility]. 06/26/2016 Bilateral Screening Mammogram, [facility]. Tissue Density: The breast tissue is heterogeneously dense. This may lower the sensitivity of mammography. Findings: Analyzed By CAD. There is no suspicious group of microcalcifications or new suspicious mass in either breast. Overall Assessment: Negative, BI-RAD 1 Management: Screening Mammogram of both breasts in 1 year. . Patient should continue monthly self-breast exams. A clinical breast exam by your physician is recommended on an annual basis. This exam should not preclude additional follow-up of suspicious palpable abnormalities. Note on Anneliese scores and lifetime risk: 1. A Anneliese score greater than 3% is considered moderate risk. If this is the case, consider specialist referral to assess eligibility for a risk reducing agent. 2. If overall lifetime risk for the development of breast cancer is 20% or higher, the patient may qualify for future screening with alternating mammogram and breast MRI. Electronically signed and approved by: Jeffry Vasquez M.D. Radiologis
== END | disposition home or self-care (01) ==
LOC: RADMAMWWP 09:40
PROVIDERS: ATTEND Family Medicine
DX: Z12.31 Encounter for screening mammogram for malignant neoplasm of breast (principal); Z78.0 Asymptomatic menopausal state; Z80.3 Family history of malignant neoplasm of breast
CPT/HCPCS: 77063; 77067

== ENCOUNTER → 2023-06-28 | Outpatient (CLI) | payer BC ==
--- NOTE | 2023-06-28 12:45 | CTL ---
EXAMINATION TYPE: CT Low Dose Lung DATE OF EXAM ORDERED: 06/28/2023 HISTORY: . Low Dose CT Lung Screening CT DLP: 117.[address] CTDI: 3.5 mGy IV CONTRAST USED: None. SCREENING VISIT: First visit COMPARISON: None. TECHNIQUE: Low dose computed tomography scan was performed through the chest at 1 millimeter thick se ctions and reconstructed images in the coronal plane at [address] DIAGNOSTIC QUALITY: Satisfactory FINDINGS: LUNG NODULES: Left apical nodule measuring 6 mm. Partially calcified solid nodule right upper lobe im age 89 measures 7 mm. Pleural-based nodularity left lower lobe measures 6 mm and 6 mm respectively a nd right lower lobe posteriorly measures 6 mm and 5.5 mm respectively. No additional discrete nodules are present. LUNGS: COPD: Severity: Mild Fibrosis: Severity:None Lymph nodes: None Other findings: None RIGHT PLEURAL SPACE: Effusion: None Calcification: None Thickening: None Pneumothorax: None LEFT PLEURAL SPACE: Effusion: None Calcification: None Thickening: None Pneumothorax: None HEART: Heart Size: Mildly enlarged Coronary calcification: Mild Pericardial effusion: None OTHER FINDINGS: Upper abdomen: No significant abnormality Bony thorax: Degenerative changes Supraclavicular region: No significant abnormalityOther: No significant abnormalityI IMPRESSION: Pulmonary nodules noted all measuring less than [address] CHEST RECOMMENDATION: Follow-up study in [address] LUNG RAD: LUNG RAD CATEGORY 3 probably benign
== END | disposition home or self-care (01) ==
LOC: RADCTMAIN 11:12
PROVIDERS: ATTEND Family Medicine
DX: Z12.2 Encounter for screening for malignant neoplasm of respiratory organs (principal); R91.8 Other nonspecific abnormal finding of lung field; F17.210 Nicotine dependence, cigarettes, uncomplicated
CPT/HCPCS: 71271

== ENCOUNTER → 2023-12-11 | Outpatient (CLI) | payer BC ==
--- NOTE | 2023-12-11 13:52 | CT ---
EXAMINATION TYPE: CT chest wo con CT DLP: 657 mGycm, Automated exposure control for dose reduction was used. DATE OF EXAM: 12/11/2023 1:41 PM COMPARISON: CT low-dose lung 06/28/2023 CLINICAL INDICATION:Female, 58 years old with history of M54.2 Neck pain; PHH, lung nodules TECHNIQUE: Multiple axial images were obtained through the chest without IV contrast. Lack of IV or o ral contrast limits evaluation of solid and hollow organ viscera. . Coronal and sagittal reformats re viewed. FINDINGS: LUNGS/ PLEURA: No pleural effusion, pneumothorax, focal consolidation. Stable left apical 6.2 mm pulm onary nodule (series 4, image 8). Right anterior midline 7.8 mm nodule with punctate calcification (s eries 4, series 3). Appears less solid from prior examination. Stable 2.5 mm anterior left upper lobe pulmonary nodule (series 4, image 21). AIRWAY: Patent and unremarkable.. HEART: Size within normal limits. Trace anterior pericardial effusion. MEDIASTINUM: No gross evidence of adenopathy. VASCULATURE: No aortic aneurysm. Mild atherosclerotic calcification of the aorta and its branches. MUSCULOSKELETAL: Mild disc degeneration changes are present throughout the thoracolumbar spine. SOFT TISSUES/LYMPH NODES: Unremarkable. LOWER NECK: No significant findings. UPPER ABDOMEN: Gallbladder is surgically absent. Tiny subcentimeter hypodense foci within the liver w hich are too small character is likely represent cysts. IMPRESSION: Stable size of pulmonary nodules with previously seen right midlung pulmonary nodule demonstrating le ss solid appearance. No new or enlarging pulmonary nodules. Follow-up CT chest in one year is recomme loretta. [facility], , 12/11/2023 1:49 PM
== END | disposition home or self-care (01) ==
LOC: RADCTMAIN 12:32
PROVIDERS: ATTEND Family Medicine
CPT/HCPCS: 71250

== ENCOUNTER → 2024-01-04 | Outpatient (CLI) | payer BC ==
--- NOTE | 2024-01-07 07:09 | MM ---
Reason for Exam: Screening (asymptomatic). Last mammogram was performed 1 year(s) and 4 month(s) ago. Patient History: Menarche at age 12. First Full-Term at age 17. Hysterectomy at age 39. Postmenopausal. Patient has history of breast feeding. Estrogen for 6 months. Maternal grandmother had breast cancer, age 70. Maternal aunt had breast cancer, age 65. Risk Values: Anneliese 5 year model risk: 0.9%. NCI Lifetime model risk: 4.9%. Prior Study Comparison: 07/21/2014 Right Diagnostic Mammogram, [facility]. 06/26/2016 Bilateral Screening Mammogram, [facility]. 08/23/2022 Bilateral MG 3D screening mammo w/cad, [facility]. Tissue Density: The breasts are almost entirely fatty. Findings: Analyzed By CAD. Right breast: There is no suspicious group of microcalcifications or new suspicious mass. Left breast: There is no suspicious group of microcalcifications or new suspicious mass. Overall Assessment: Negative, BI-RAD 1 Management: Screening Mammogram of both breasts in [address] [facility] will attempt to contact patient to return for supplemental views and ultrasound if indicated. Patient should continue monthly self-breast exams. A clinical breast exam by your physician is recommended on an annual basis. This exam should not preclude additional follow-up of suspicious palpable abnormalities. Note on Anneliese scores and lifetime risk: 1. A Anneliese score greater than 3% is considered moderate risk. If this is the case, consider specialist referral to assess eligibility for a risk reducing agent. 2. If overall lifetime risk for the development of breast cancer is 20% or higher, the patient may qualify for future screening with alternating mammogram and breast MRI. [facility], , 01/04/2024 3:22 PM. Electronically signed and approved by: Arcenio Pina DO
== END | disposition home or self-care (01) ==
LOC: RADMAMWWP 10:43
PROVIDERS: ATTEND Family Medicine
DX: Z12.31 Encounter for screening mammogram for malignant neoplasm of breast (principal); Z78.0 Asymptomatic menopausal state; Z80.3 Family history of malignant neoplasm of breast; R92.313 Mammographic fatty tissue density, bilateral breasts
CPT/HCPCS: 77063; 77067

== ENCOUNTER 2024-05-09 06:02 | Day surgery (SDC) | payer BC, MEDICARE ==
[2024-05-08 10:28] VITALS: BMI 34.2
[2024-05-09] MEDS: IV FLUID CONTINUATION 500 ML IV ONE (06:21)
[2024-05-09] MEDS ORDERED: LACTATED RINGERS 1,000 ML IV SCH (06:27)
[2024-05-09 06:33] VITALS: TEMP 98
[2024-05-09] MEDS ORDERED: PROPOFOL 10 MG/ML 20 ML VIAL IV ONE (06:59)
[2024-05-09] MEDS ORDERED: LIDOCAINE 1% INJ 10MG/ML (20 ML MDV) ONE (06:59)
--- NOTE | 2024-05-09 07:24 | P.PCN ---
Date of Procedure: 05/09/24 Procedure(s) Performed: Brief history: Patient is a pleasant 59-year-old white female scheduled for an elective upper endoscopy as well as colonoscopy as a part of evaluation of longstanding history of history of GERD, intermittent dysphagia to solids and screening for history of colon polyps. Procedure performed: Esophagogastroduodenoscopy with biopsy Colonoscopy with biopsy Preoperative diagnosis: GERD/intermittent dysphagia to solids Screening for history of colon polyps [place]est[place]: [facility] [place] Procedure: After informed consent was obtained from the patient was brought into the endoscopy unit and IV sedation was administered by anesthesia under continuous monitoring. Initially upper endoscopy was done. The Olympus GF 160 video endoscope was inserted inserted into the mouth and esophagus intubated without any difficulty and was gradually advanced into the stomach and duodenum and carefully examined. The bulb had mild duodenitis and second part of the duodenum appeared normal. The scope was then withdrawn into the stomach adequately insufflated with air and upon careful examination the antrum had mild gastritis and biopsies were done from this area. This Erosions also noted. Because of the and body, cardia and fundus appeared normal. The scope was then withdrawn into the esophagus. The GE junction was located at 40 cm to the incisors. It appeared regular with 2 superficial erosions consistent with LA grade a reflux esophagitis.. Rest of the esophagus appeared normal. Patient tolerated the procedure well. At this time the patient continued to remain sedation. Initial digital rectal examination was normal. Olympus CF 160 video colonoscope was then inserted into the rectum and gradually advanced to the cecum without any difficulty. Careful examination was performed as the scope was gradually being withdrawn. The prep was excellent. The cecum, ascending colon, transverse colon, descending colon, appeared normal. The sigmoid colon there was a significant part of that was removed by cold biopsy. Rest of the sigmoid colon and rectum appeared normal. Retroflexion was performed in the rectum and no lesions were noted. Patient tolerated the procedure well. Impression: 1. Upper endoscopy revealed mild duodenitis, antral erosive gastritis and LA grade B reflux esophagitis 2. Colonoscopy revealed sigmoid colon biopsies with cold biopsy Recommendations: Findings of this examination were discussed with the patient as well a her family. She was advised to follow-up with the biopsy results. Continue with omeprazole 20 mg daily and follow antireflux measures. If the biopsy reveals adenoma she can have repeat colonoscopy 5 to 7 years.
[2024-05-09 07:47] VITALS: BP 144/67; PULSE 59; RESP 14
== END 2024-05-09 08:15 | disposition home or self-care (01) ==
LOC: ORWHC2ENDO 06:02
PROVIDERS: ATTEND Internal Medicine Gastroenterology
DX: Z12.11 Encounter for screening for malignant neoplasm of colon (principal); K29.50 Unspecified chronic gastritis without bleeding; K63.5 Polyp of colon; K29.80 Duodenitis without bleeding; K21.00 Gastro-esophageal reflux disease with esophagitis, without bleeding; E78.5 Hyperlipidemia, unspecified; J44.9 Chronic obstructive pulmonary disease, unspecified; Z89.521 Acquired absence of right knee; Z89.522 Acquired absence of left knee; Z90.6 Acquired absence of other parts of urinary tract; Z88.0 Allergy status to penicillin; Z79.02 Long term (current) use of antithrombotics/antiplatelets; Z79.899 Other long term (current) drug therapy
CPT/HCPCS: 45380; 43239; J2003; J2704; 88305